=== PATIENT | female | born 1970 | race Caucasian/White ===

== ENCOUNTER → 2018-04-13 14:47 | Outpatient (CLI) | payer OTHER, SELFPAY ==
[2018-04-16 11:30] LABS: HPV Reflexed? NOT INDICATED
--- OUTSIDE RECORDS SUMMARY | 2018-05-30 20:44 | XMS RPT_ITS ---
:1970 Author Organization [facility] Care Team Providers Name Role Phone Brie Valenzuela Attending Unavailable Brie Valenzuela Referring Unavailable Primay Care Physicia, No Primary Care Unavailable PROBLEMS PROBLEMS DATE TYPE CONDITION / CODE ATTENDING STATUS SOURCE 04/13/2018 Unknown Z12.4 - Brie Valenzuela Active [place] [facility] screening for Hospital malignant Repository neoplasm of cervix / Z12.4(ICD-10) PROCEDURES PROCEDURES No Procedure Records FoundRESULTS RESULTS PAP I-G W/RFX HRHPV Collected: 04/13/2018 Status: F Source: ARTIE 10:45 AM [facility] H[facility]PITAL REPOSITORY Order Comment: CYTOLOGY INFORMATION: - CLINICAL INFORMATION: - DATE LMP/MENOPAUSE: 02-28-18 LMP - COLLECTION VIAL: Thin Prep Vial - OPERATIONS INTELLIGENCE SUPERINTENDENT SOURCE: CERVICAL/ENDOCERVICAL - COLLECTION TECHNIQUE: BRUSH/SPATULA Specimen Comment: [id number] Specimen Comment: Source.............Cervix;Endocervix Specimen Comment: LMP / Prev Treat...[id number] Specimen Comment: No. of containers..01 ThinPrep Vial TYPE CODE TESTS RESULT OUT OF RANGE REFERENCE UNITS LAB L7400.0800 . Normal DIAGN Comment Result Comment: NEGATIVE FOR INTRAEPITHELIAL LESION AND MALIGNANCY. PREDOMINANCE OF COCCOBACILLI CONSISTENT WITH SHIFT IN VAGINAL TYRONE IS PRESENT. CELLULAR CHANGES ASSOCIATED WITH INFLAMMATION ARE PRESENT. LAB L7400.0900 . Normal ADEQ Comment Result Comment: Satisfactory for evaluation. Endocervical and/or squamous metaplastic cells (endocervical component) are present. LAB L7400.1400 . Normal PERFORM Comment Result Comment: Karla Cesar, Fish Bin Tender (ASCP) LAB L7400.2575 . Normal TEST METHOD Comment Result Comment: This liquid based ThinPrep(R) pap test was screened with the use of an image guided system. LAB L7400.2600 . Normal . COMM LAB L7400.2700 . Normal PAPSMR Comment Result Comment: The Pap smear is a screening test designed to aid in the detection of premalignant and malignant conditions of the uterine cervix. It is not a diagnostic procedure and should not be used as the sole means of detecting cervical cancer. Both false-positive and false-negative reports do occur. LAB L7400.2800 . Normal HPV RFLX Comment Result Comment: The HPV DNA reflex criteria were not met with this specimen result therefore, no HPV testing was performed. Performed at: - [facility] [id number] Behavior Support Specialist: Simona Wolf MD, Phone: [phone] Performed By: #### L7400.0350 #### [facility] (refer to report for specific site) refer to report for address and phone number ALLERGIES ALLERGIES No Allergies Records FoundENCOUNTERS ENCOUNTERS ADMIT/DISCHARGE ACCOUNT ADMITTING ENCOUNTER LOCATION SOURCE NUMBER CLASS 04/13/2018 [id number] Ambulatory Artie Artie [address] [place] [address] ing:[facility] Repository PAYERS PAYERS ENCOUNTER GUARANTOR PAYER SUBSCRIBER SOURCE 04/13/2018 [place] Primary [place] [id number] Insurance:Adolfo HeardB: [facility] [place]: [id number] [id number] Repository [id number]: 330) Date:5301-69-81[phone] () [address] [address]NR: 04/13/2018 Secondary NOT GIVENUNK Artie Insurance:SELF PAY [facility] Number: Effective Repository Date:2018-04-13
--- OUTSIDE RECORDS SUMMARY | 2018-05-30 20:44 | XMS RPT_ITS ---
:1970 Author Organization [facility] Address [address] [place] [address] Phone Care Team Providers Name Role Phone Jose Alberto BROWN, Isaías Hooper Reason for Visit Reason For Visit Description Start Date Postop - subsequent visit Preliminary reason for visit data, not yet signed by the author as of left shoulder post Left small rotator cuff repair Biceps tenodesis on 05/21/2017 Preliminary reason for visit data, not yet signed by the author as of Chief Complaint Chief Complaint Description Start Date left shoulder post Left small rotator cuff repair Biceps tenodesis on 05/21/2017 Preliminary chief complaint data, not yet signed by the author as of Instructions Instruction Description Start Date Completed Plan of Care Type Date Detail Appointment 10:15 AM Isaías Abrams MD, [address] [facility], [place], [address], Medications Medication Instructions Start Stop Generic Name NDC Provider Date Date TYLENOL 8 HOUR Three times per / ACETAMINOPHEN [id number] Maryanne 650 MG CR-TABS day 30 Czyzambar PA-C KARIVA takes 1 tablet / DESOGESTREL-ETHI [id number] Wendie 0.15-0.02/0.01 daily for ESTRADIOL Rosette CONTROL BOARD OPERATOR MG (21/09) TABS hormonal regulation Conditions or Problems Problem Name Problem Onset Status Entry Provider Comment Standard Annotate Code Date Date Description Complete M75.122 Active Maryanne Complete rotator cuff (ICD-10-CM) 07/03 Flor rotator cuff tear or PA-C tear or rupture of rupture of left shoulder left not specified shoulder, not as traumatic specified as traumatic Partial [id number] Active Isaías R Nontraumatic nontraumatic (SNOMED CT) 01/03 Jose Alberto BROWN rotator cuff tear of left tear rotator cuff Allergies, Adverse Reactions, Alerts Allergy Name Reaction Start Date Severity Status Provider Description BEE STINGS Critical Active Wendie Rosette CONTROL BOARD OPERATOR STINGING Critical Active Wendie Rosette INSECTS CONTROL BOARD OPERATOR Social History No information available. Vital Signs Date Name Value Unit Description BMI (Body Mass 24.78 kg/m2 Body Mass Index Index) [Ratio] Preliminary vital sign data, not yet signed by the author as of BP Diastolic 78 mm[Hg] blood pressure, diastolic Preliminary vital sign data, not yet signed by the author as of BP Systolic 118 mm[Hg] blood pressure, systolic Preliminary vital sign data, not yet signed by the author as of Heart Rate 56 /min pulse rate E&M Preliminary vital sign data, not yet signed by the author as of Height 62 [in_us] height E&M Preliminary vital sign data, not yet signed by the author as of Height 157 cm height in centimeters E&M Preliminary vital sign data, not yet signed by the author as of Weight Measured 135 [lb_av] weight E&M Preliminary vital sign data, not yet signed by the author as of Weight Measured 61 kg weight in kilograms E&M Preliminary vital sign data, not yet signed by the author as of Results Date Name Value Unit Range Flag Description Office Visit: Postop - subsequent visit, Rm: 41 MEDS REVIEW Done Documentation of current medications (procedure) Preliminary observation data, not yet signed by the author as of Preliminary observation data, not yet signed by the author as of Clinical Summary: HMSPatientID OOP account number Procedures Code Procedure Name Date Entry Date [id number]-16176 Physical Therapy G8731 Pain assessment documented as negative - follow-up not required G8427 Current medications documented 1036F Tobacco screening was negative - non user G8420 BMI documented within normal parameters - no follow-up plan is required G8783 Blood pressure within normal parameters - no follow-up required [id number] Patient Encounter Medications Administered No information available. Immunizations No information available. Advance Directives There may be information available, but it has not been provided by the sender. Assessments There may be information available, but it has not been provided by the sender. Review of Systems There may be information available, but it has not been provided by the sender. Family History There may be information available, but it has not been provided by the sender. History of Past Illness There may be information available, but it has not been provided by the sender. History of Present Illness There may be information available, but it has not been provided by the sender.
== END ==
PROVIDERS: Referring Provider Obstetrics & Gynecology; Visit Provider Obstetrics & Gynecology
DX: Z12.4 Encounter for screening for malignant neoplasm of cervix (principal)
CPT/HCPCS: 88175; G0145

== ENCOUNTER → 2018-06-07 10:39 | Outpatient (CLI) | payer OTHER, SELFPAY ==
--- NOTE | 2018-06-07 10:42 | BI_ITS ---
MAMMOGRAPHY - BILATERAL SCREENING REASON FOR EXAM: Female, 47 years old. Routine annual screening examination. PERTINENT HISTORY: Non-contributory. Remote bilateral breast reduction surgery. TECHNIQUE: Digital bilateral breast mehrdad (3D mammographic acquisition) in the CC and MLO projections. 2-D mediolateral oblique (MLO) and craniocaudad (CC) views of both breasts were obtained. CAD: Full Field Digital Mammography with Computer Added Detection was performed. COMPARISON: Comparison is made with prior study dated May 13, 2017 and February 08, 2016. FINDINGS: Breast Composition: There are scattered areas of fibroglandular density. There are no dominant masses or suspicious calcifications. No other significant abnormalities are identified. There has been no significant change since the prior study. BI/SCREENING MAMM (CAD), BILAT IMPRESSION: Stable bilateral screening mammogram. Yearly follow-up mammogram recommended. (A) ASSESSMENT CATEGORY: BIRADS Category 1: Negative. A letter regarding these results will be sent to the patient by the facility within 30 days. Approximately 10% of breast cancers are not detected by mammography. A normal mammogram should not delay biopsy of a clinically suspicious abnormality. [id number] Electronically Signed: Ion Sneed MD at 11:25 EST , Service support ,
== END ==
PROVIDERS: Referring Provider Obstetrics & Gynecology; Visit Provider Obstetrics & Gynecology
DX: Z12.31 Encounter for screening mammogram for malignant neoplasm of breast (principal)
CPT/HCPCS: 77063; 77067

== ENCOUNTER → 2019-03-15 16:14 | Outpatient (CLI) | payer OTHER, SELFPAY | PROVIDERS: Visit Provider Obstetrics & Gynecology | DX: N39.0 Urinary tract infection, site not specified (principal) | CPT/HCPCS: 87077; 87086; 87088 ==

== ENCOUNTER 2019-03-16 01:25 | Emergency (ER) | payer OTHER, SELFPAY ==
[2019-03-16 01:27] VITALS: BP 108/55; PULSE 52; RESP 16; TEMP 35.8; O2SAT 100; BMI 25.4
--- NOTE | 2019-03-16 01:36 | EKG12_ITS ---
Test Reason : DIZZINESS Blood Pressure : / mmHG Vent. Rate : 060 BPM Atrial Rate : 060 BPM P-R Int : 190 ms QRS Dur : 080 ms QT Int : 490 ms P-R-T Axes : 038 043 045 degrees QTc Int : 490 ms Sinus rhythm with occasional Premature ventricular complexes Nonspecific ST and T wave abnormality Prolonged QT Abnormal ECG Confirmed by SAIGE CASTRO ([id number]), restaurant expeditor YANE CELESTIN ([id number]) on 03/18/2019 11:11:06 AM Referred By: SYLVIE Confirmed By:SAIGE CASTRO
--- NOTE | 2019-03-16 01:37 | US_ITS ---
STUDY: ULTRASOUND TRANSVAGINAL CLINICAL: Female, 48 years old. Pelvic pain TECHNIQUE: Transvaginal COMPARISON: None. FINDINGS: Normal uterine size measuring 6.3 x 4.3 x 3.9 cm in maximal craniocaudal dimension. There are no myometrial masses. Increased endometrial thickness measuring 14.6 mm. There there is heterogeneous appearance of the endometrium. Normal uterine cervix. Normal right ovary, measuring 3.2 x 1.8 x 1.8 cm. There is a cystic structure in the right ovary measures 1.5 cm consistent with follicle. Normal left ovary, measuring 1.7 x 1.3 x 1.2 cm. There are multiple follicles without a dominant cyst. There is no free fluid in the pelvis. US/Transvaginal Non- IMPRESSION: Marked thickening of the endometrium has nonspecific appearance. Follow-up would be recommended to exclude a neoplastic process. Electronically Signed: Gabbie Rodriguez, at 4:17 EST Tel , Service support ,
--- NOTE | 2019-03-16 01:38 | ED.DCSUM_ITS ---
History of Present Illness Chief Complaint: Dizziness Narrative: This patient is a 48-year-old female who presents with pelvic pain syncope nausea and vomiting. About 45 minutes ago she began to have pelvic pain which is currently mild she rates it 1 out of 10. She got up to go to the bathroom and had a syncopal event. This was witnessed by her who is a physician. He estimates that she was unresponsive for 15 to 30 seconds. Afterwards she has had nausea with multiple episodes of emesis. She denies any vaginal bleeding or discharge. No chest pain or shortness of breath. No fevers. No diarrhea. She does have a history of prior syncope related to abdominal pain. She has been having some recent urinary symptoms of frequency and urgency and saw the lecturer in computer science yesterday. There were no leukocytes in the urine but a culture was sent. She was empirically started on antibiotics. She denies any history of diabetes, hypertension, coronary disease. Past Medical History - Allergies and Home Meds Allergies/Adverse Reactions: Allergies bee venom protein (honey bee) Adverse Reaction (Verified 03/16/19 01:26) Anaphylaxis Primary Care Physician: Care Physician,No Primary [NON-STAFF] - Past Medical History: None Surgical History: - - section Review of Systems All systems negative except as indicated General: Denies: Fever Cardiovascular: Denies: Chest pain Respiratory: Denies: Dyspnea Gastrointestinal: Reports: Abdominal pain, Nausea, Vomiting, - - Pelvic pain Genitourinary: Reports: Frequency Skin: Denies: Rash Physical Exam Vital Signs/Narrative: Vital Signs Temp Pulse Resp BP Pulse Ox 03/16/19 01:27 96.5 F L 52 L 16 108/55 L 100 Inital Vital Signs reviewed: Yes General: Well nourished, Well developed Head: Normocephalic Eyes: EOMI ENT: Moist mucous membranes Neck: Supple Cardiovascular: Regular rhythm, Bradycardia Respiratory: No distress, CTA bilaterally Abdomen: Soft, Nontender, Nondistended Extremities: Nontender Skin: Normal color Neurological: Alert Psychological: Normal affect Diagnostic/Tx/Re-eval Impressions Transvaginal US 03/16/19 01:37 IMPRESSION: Marked thickening of the endometrium has nonspecific appearance. Follow-up would be recommended to exclude a neoplastic process. Electronically Signed: Gabbie Rodriguez, at 4:17 EST Tel , Service support , 03/16/19 01:37 Transvaginal Non- [US] Stat Laboratory Results 03/16/19 03/16/19 03/16/19 01:40 01:40 01:40 WBC 10.1 RBC 4.02 L Hgb 12.8 Hct 37.5 MCV 93.3 MCH 31.8 MCHC 34.1 RDW Std Deviation 43.9 RDW Coeff of Lali 12.7 Plt Count 245 MPV 9.4 Immature Gran % (Auto) 0.200 Neut % (Auto) 44.0 L Lymph % (Auto) 37.3 Edwards % (Auto) 9.0 Eos % (Auto) 8.1 H Baso % (Auto) 1.4 H Absolute Neuts (auto) 4.4 Absolute Lymphs (auto) 3.75 Nucleated RBC % 0 Sodium 137 Potassium 3.3 L Chloride 105 Carbon Dioxide 25.0 Anion Gap 7 BUN 15 Creatinine 0.64 Estim Creat Clear Calc 83.17 Est GFR (MDRD) Af Amer 127 Est GFR (MDRD) Non-Af 105 BUN/Creatinine Ratio 23.6 H Glucose 104 Calcium 9.1 Troponin I 0.022 Serum , Qual NEGATIVE - Medical Decision Making Patient was symptomatically treated here with IV fluids and Zofran. She continued to complain of nausea and was given IV Phenergan. She feels much better on reevaluation. She is resting comfortably. Initial EKG shows sinus rhythm at a rate of 60 although it is limited due to artifact as she had some tremor at the time. Repeat EKG shows sinus bradycardia at a rate of 52. Labs including troponin are normal. Pelvic ultrasound does show endometrial thickening at 14.6 mm. I did speak to Dr. Mojica who is on-call for Dr. Valenzuela who notes that depending on where the patient is at in her menstrual cycle this could be normal. Patient reports that her last menstrual period was in November. At this point given that she does feel better with unremarkable labs and stable vitals I feel she is safe for further outpatient work-up but does understand to return for new or worsening symptoms. Given she has had prior syncope related to pain I suspect her syncope tonight was a vasovagal episode. She was also provided a prescription for antiemetics. All questions answered at bedside. Patient agreeable to plan was discharged home. ED Disposition - Plan for ED Patient: Disposition: Home or Assisted Living Diagnosis: Vasovagal syncope, Pelvic pain, Abnormal pelvic ultrasound Instructions: SYNCOPE, Unk Cause, PELVIC PAIN, Unknown Cause Referrals: Care Physician,No Primary [NON-STAFF] - Brie Valenzuela MD [STAFF PHYSICIAN] -
[2019-03-16] MEDS: 0.9% Normal Saline 1,000 ML 1000 ML IV (01:43)
[2019-03-16] MEDS: Ondansetron 4 MG/2 ML Vial IV (01:44)
[2019-03-16] MEDS: Ketorolac 30 MG/ML Syringe IV (01:45)
--- NOTE | 2019-03-16 01:45 | ED.RN ---
NO OLD EKGS IN MUES
[2019-03-16 01:46] LABS: Absolute Lymphocyte Count 3.75 X10^3/uL (0.83-4.51); Absolute Neutrophil Count 4.4 X10^3/uL (2.0-7.7); Basophil# 0.14 X10^3/uL; Basophil% 1.4 % (0-1); Eosinophil# 0.81 X10^3/uL; Eosinophils% 8.1 % (0-5); Hematocrit 37.5 % (37-47); Hemoglobin 12.8 g/dL (12.0-15.0); Lymphocyte # 3.75 X10^3/ul (4.0); Lymphocyte % 37.3 % (19-41); Mean Corp Hgb Conc 34.1 g/dL (32-36); Mean Corpuscular Hgb 31.8 pg (27.0-32.0); Mean Corpuscular Volume 93.3 fL (81-99); Mean Platelet Vol. 9.4 fl (6.2-12.0); Monocyte# 0.91 X10^3/uL; NRBC Flagged by Analyzer 0 % (0-5); Neutrophil # 4.43 X10^3/uL (2.7-7.7); Platelet Count 245 K/mm3 (150-450); RBC Distribution Width CV 12.7 % (11.6-14.6); RBC Distribution Width SD 43.9 fl (35.1-43.9); Red Blood Count 4.02 M/mm3 (4.2-5.4); White Blood Count 10.1 K/mm3 (4.4-11.0)
[2019-03-16 02:06] LABS: Anion Gap 7 (5-15); BUN 15 mg/dL (7-18); BUN/Creat Ratio 23.6 RATIO (10-20); Calcium,Total 9.1 mg/dL (8.5-10.1); Chloride 105 mmol/L (98-107); Creatinine, Serum 0.64 mg/dL (0.55-1.02); EST Glomerular Filtration Rate 105 mL/min (>60); Est Glom Filt Rate - Afr Amer 127 mL/min (>60); Estimated Creatinine Clearance 83.17 ml/min; Glucose 104 mg/dL (74-106); Potassium 3.3 mmol/L (3.5-5.1); Sodium Level 137 mmol/L (136-145)
[2019-03-16 02:08] LABS: Internal QC Validated? YES +Cl - CLEAR BKGD; Pregnancy, Serum, hCG Quali. NEGATIVE Negative
[2019-03-16] MEDS: proMETHazine 25 MG/ML Syringe 12.5 MG IV (02:12)
--- NOTE | 2019-03-16 03:49 | EKG12_ITS ---
Test Reason : REPEAT Blood Pressure : / mmHG Vent. Rate : 052 BPM Atrial Rate : 052 BPM P-R Int : 178 ms QRS Dur : 082 ms QT Int : 480 ms P-R-T Axes : 047 009 029 degrees QTc Int : 446 ms Sinus bradycardia Otherwise normal ECG Confirmed by SAIGE CASTRO ([id number]), metropolitan editor YANE CELESTIN ([id number]) on 03/18/2019 11:10:16 AM Referred By: SYLVIE Confirmed By:SAIGE CASTRO
[2019-03-16 04:47] VITALS: BP 109/62; PULSE 57; RESP 15; O2SAT 99
== END 2019-03-16 04:52 | disposition home or self-care (01) ==
PROVIDERS: Emergency Provider Emergency Medicine; Family Provider Student in an Organized Health Care Education/Training Program; PCP Student in an Organized Health Care Education/Training Program
DX: R55 Syncope and collapse (principal); R10.2 Pelvic and perineal pain; R93.89 Abnormal findings on diagnostic imaging of other specified body structures; R39.15 Urgency of urination; R35.0 Frequency of micturition
CPT/HCPCS: 76830; 80048; 84484; 84703; 85025; 93005; 96361; 96374; 96375; 99284; J7030; A4216; J2405

== ENCOUNTER → 2019-03-21 08:34 | Outpatient (CLI) | payer OTHER, SELFPAY ==
[2019-03-16 01:27] VITALS: BMI 25.4
[2019-03-21 09:21] LABS: Anion Gap 6 (5-15); BUN 13 mg/dL (7-18); BUN/Creat Ratio 19.1 RATIO (10-20); Calcium,Total 8.4 mg/dL (8.5-10.1); Chloride 107 mmol/L (98-107); Cholesterol 179 mg/dL (200); Creatinine, Serum 0.68 mg/dL (0.55-1.02); EST Glomerular Filtration Rate 97 mL/min (>60); Est Glom Filt Rate - Afr Amer 117 mL/min (>60); Glucose 84 mg/dL (74-106); High Density Lipoprotein 77 mg/dL; Potassium 4.4 mmol/L (3.5-5.1); Sodium Level 140 mmol/L (136-145); Triglycerides 52 mg/dL; Very Low Density Lipoprotein 10 mg/dL (5-40)
== END ==
PROVIDERS: Family Provider Student in an Organized Health Care Education/Training Program; PCP Student in an Organized Health Care Education/Training Program; Referring Provider Student in an Organized Health Care Education/Training Program; Visit Provider Student in an Organized Health Care Education/Training Program
DX: Z00.00 Encounter for general adult medical examination without abnormal findings (principal); E87.6 Hypokalemia
CPT/HCPCS: 36415; 80048; 80061

== ENCOUNTER → 2019-07-11 09:50 | Outpatient (CLI) | payer OTHER, SELFPAY ==
--- NOTE | 2019-07-11 10:00 | BI_ITS ---
MAMMOGRAPHY - BILATERAL SCREENING REASON FOR EXAM: Female, 48 years old. Routine annual screening examination. PERTINENT HISTORY: Non-contributory. History of prior breast reduction surgery. TECHNIQUE: Digital bilateral breast calli (3D mammographic acquisition) in the CC and MLO projections. 2-D mediolateral oblique (MLO) and craniocaudad (CC) views of both breasts were obtained. CAD: Full Field Digital Mammography with Computer Added Detection was performed. COMPARISON: Comparison is made with prior study dated June 07, 2018 and May 13, 2017. FINDINGS: Breast Composition: There are scattered areas of fibroglandular density. There are no dominant masses or suspicious calcifications. No other significant abnormalities are identified. There has been no significant change since the prior study. BI/SCREEN MAMM (CAD) W/CALLI BILAT IMPRESSION: Stable bilateral screening mammogram. Yearly follow-up mammogram recommended. (A) ASSESSMENT CATEGORY: BIRADS Category 1: Negative. A letter regarding these results will be sent to the patient by the facility within 30 days. Approximately 10% of breast cancers are not detected by mammography. A normal mammogram should not delay biopsy of a clinically suspicious abnormality. [id number] Electronically Signed: Ion Sneed, at 12:41 EDT , Service support ,
== END ==
PROVIDERS: PCP Student in an Organized Health Care Education/Training Program; Referring Provider Obstetrics & Gynecology; Visit Provider Obstetrics & Gynecology
DX: Z12.31 Encounter for screening mammogram for malignant neoplasm of breast (principal)
CPT/HCPCS: 77063; 77067

== ENCOUNTER → 2020-07-02 | Outpatient (CLI) | payer OTHER, SELFPAY ==
[2020-07-06 16:27] LABS: HPV APTIMA, High Risk Negative (Negative)
== END | disposition home or self-care (01) ==
LOC: LABSPEC 13:39
PROVIDERS: PCP Student in an Organized Health Care Education/Training Program; Visit Provider Obstetrics & Gynecology
DX: Z12.4 Encounter for screening for malignant neoplasm of cervix (principal)
CPT/HCPCS: 87624; 88175; G0145

== ENCOUNTER → 2020-07-11 08:37 | Outpatient (CLI) | payer OTHER, SELFPAY ==
--- NOTE | 2020-07-11 08:38 | BI_ITS ---
MAMMOGRAPHY - BILATERAL SCREENING REASON FOR EXAM: Female, 49 years old. Routine annual screening examination. PERTINENT HISTORY: Non-contributory. History of prior bilateral breast reduction surgery. TECHNIQUE: Digital bilateral breast calli (3D mammographic acquisition) in the CC and MLO projections. 2-D mediolateral oblique (MLO) and craniocaudad (CC) views of both breasts were obtained. CAD: Full Field Digital Mammography with Computer Added Detection was performed. COMPARISON: Comparison is made with prior examination dated 07/11/2019 and 06/07/2018 FINDINGS: Breast Composition: There are scattered areas of fibroglandular density. There are no dominant masses or suspicious calcifications. No other significant abnormalities are identified. There has been no significant change since the prior study. BI/SCRN MAMM (CAD)W/CALLI BILAT IMPRESSION: Stable bilateral screening mammogram. Yearly follow-up mammogram recommended. (A) ASSESSMENT CATEGORY: BIRADS Category 1: Negative. A letter regarding these results will be sent to the patient by the facility within 30 days. Approximately 10% of breast cancers are not detected by mammography. A normal mammogram should not delay biopsy of a clinically suspicious abnormality. [id number] Electronically Signed: Ion Sneed MD at 11:12 EDT , Service support ,
== END ==
PROVIDERS: PCP Student in an Organized Health Care Education/Training Program; Referring Provider Obstetrics & Gynecology; Visit Provider Obstetrics & Gynecology
DX: Z12.31 Encounter for screening mammogram for malignant neoplasm of breast (principal)
CPT/HCPCS: 77063; 77067

== ENCOUNTER → 2020-09-11 07:01 | Outpatient (CLI) | payer OTHER, SELFPAY ==
[2020-09-04 07:09] VITALS: BMI 25.4
--- NOTE | 2020-09-11 08:45 | PFTCOMP ---
COMPLETE PULMONARY FUNCTION TEST INTERPRETATION Brief HPI: Patient is a 49 year old female, currently under the care of myself, who presents to [facility] for complete pulmonary function tests secondary to diagnosis of cough. Respiratory therapist reports good effort and reproducible results. Interpretation: Forced expiration spirometry shows no large airways obstructive ventilatory defect with an FEV1 of 135% predicted. There is no significant bronchodilator response by strict ATS criteria. Spirograms are of good quality and plateau slowly, indicating slowly emptying areas of the lungs. The respiratory flow volume loop shows decreased expiratory flow rates at high lung volumes consistent with small airways obstruction. Lung volumes by body plethysmography show an elevated total lung capacity at 5.56 L, 122% predicted. All other lung volumes are within normal limits. Diffusion capacity by carbon monoxide is normal at 91% predicted. The airway resistance is slightly elevated. No previous pulmonary function tests were available for review. Impression: Relatively normal pulmonary function testing with some stigmata of small airways disease. Could consider bronchoprovocation study for evaluation of asthma
== END ==
PROVIDERS: PCP Student in an Organized Health Care Education/Training Program; Referring Provider Internal Medicine Critical Care Medicine; Visit Provider Internal Medicine Critical Care Medicine
DX: R05 Cough (principal)
CPT/HCPCS: 94060; 94726; 94729

== ENCOUNTER 2021-07-09 09:57 | Outpatient (CLI) | payer OTHER, SELFPAY ==
--- NOTE | 2021-07-09 10:02 | BI_ITS ---
MAMMOGRAPHY - BILATERAL SCREENING REASON FOR EXAM: Female, 50 years old. Routine annual screening examination. PERTINENT HISTORY: Non-contributory. History of prior bilateral breast reduction surgery TECHNIQUE: Digital bilateral breast calli (3D mammographic acquisition) in the CC and MLO projections. 2-D mediolateral oblique (MLO) and craniocaudad (CC) views of both breasts were obtained. CAD: Full Field Digital Mammography with Computer Added Detection was performed. COMPARISON: Comparison is made with prior study 07/11/2020 and 07/11/2019. FINDINGS: Breast Composition: There are scattered areas of fibroglandular density. There are no dominant masses or suspicious calcifications. No other significant abnormalities are identified. There has been no significant change since the prior study. BI/SCRN MAMM (CAD)W/CALLI BILAT IMPRESSION: Stable bilateral screening mammogram. Yearly follow-up mammogram recommended. (A) ASSESSMENT CATEGORY: BIRADS Category 1: Negative. A letter regarding these results will be sent to the patient by the facility within 30 days. Approximately 10% of breast cancers are not detected by mammography. A normal mammogram should not delay biopsy of a clinically suspicious abnormality. [id number] Electronically Signed: Ion Sneed MD at 12:18 EST ,
== END 2021-07-09 23:59 | disposition home or self-care (01) ==
LOC: OPBI 09:57
PROVIDERS: PCP Student in an Organized Health Care Education/Training Program; Visit Provider Obstetrics & Gynecology
DX: Z12.31 Encounter for screening mammogram for malignant neoplasm of breast (principal)
CPT/HCPCS: 77063; 77067